=== PATIENT | male | born 1960 | race Caucasian/White ===

== ENCOUNTER 2017-04-20 18:03 | Emergency (ER) | payer OTHER ==
[2017-04-20 18:51] VITALS: RESP 16; TEMP 96.4
[2017-04-20] MEDS ORDERED: Sodium Chloride 0.9% 1,000 ML PRIMARY IV ONE (18:57)
[2017-04-20] MEDS ORDERED: TAMSULOSIN 0.4 MG CAPSULE PO ONE (18:57)
[2017-04-20] MEDS ORDERED: NORMAL SALINE 10 ML SYRINGE FLUSH IVP PRN (18:57)
[2017-04-20 19:07] LABS: BASOPHILS # (AUTO) 0.04 10*3/UL; BASOPHILS % (AUTO) 0.3 % (0-1); EOSINOPHILS # (AUTO) 0.08 10*3/UL; EOSINOPHILS % (AUTO) 0.6 % (0-8); HEMATOCRIT 50.4 % (42.0-52.0); HEMOGLOBIN 17.3 g/dL (14.0-18.0); LYMPHOCYTES # (AUTO) 2.12 10*3/uL; MEAN CORPUSCULAR HEMOGLOBIN 31.5 PG (27-31); MEAN CORPUSCULAR HGB CONC 34.3 g/dL (33-37); MEAN CORPUSCULAR VOLUME 91.8 FL (80-90); MEAN PLATELET VOLUME 10.2 FL (7.4-12.2); MONOCYTES % (AUTO) 4.5 % (5-15); NEUTROPHILS # (AUTO) 10.37 10*3/UL; NEUTROPHILS % (AUTO) 78.3 % (50-80); RED BLOOD COUNT 5.49 10^6/uL (4.70-6.10)
[2017-04-20 19:10] LABS: PLATELET MORPHOLOGY COMMENT NORMAL MORPHOLOGY (NORM); RBC MORPHOLOGY COMMENT NORMAL MORPHOLOGY (NORM); WBC MORPHOLOGY COMMENT NORMAL MORPHOLOGY (NORM)
[2017-04-20 19:11] LABS: BUN/CREATININE RATIO 13.84 (6-20); CALCIUM 9.8 mg/dL (8.7-10.7); SERUM ALBUMIN 4.3 g/dL (3.5-4.8)
[2017-04-20 19:12] LABS: BILIRUBIN,URINE NEGATIVE (NEG); CLARITY,URINE CLEAR (CLEAR); COLOR,URINE YELLOW; GLUCOSE, URINE (UA) NEGATIVE (NEG); NITRATE,URINE NEGATIVE (NEG); OCCULT BLOOD,URINE LARGE (NEG); PH,URINE 6.5 (5.0-8.5); PROTEIN,URINE TRACE mg/dl (NEG); UROBILINOGEN,URINE 0.2 EU/dL (0.2)
[2017-04-20 19:14] LABS: RBC,URINE 20-25 /hpf; URINE SAMPLE TYPE VOIDED SPECIMEN
[2017-04-20 19:15] LABS: SQUAMOUS EPITHELIAL CELL,UR RARE
[2017-04-20] MEDS ORDERED: HYDROmorphone 2 MG/1 ML IVP ONE (20:09)
[2017-04-20] MEDS ORDERED: KETOROLAC 30 MG/1 ML VIAL IVP ONE (20:10)
--- NOTE | 2017-04-20 20:24 | DI ---
CT ABDOMEN SCAN WITH IV CONTRAST, 04/20/2017 6:58 PM : Clinical History: Right flank pain. Previous Exam: 05/21/2016. Scans are performed from the lower lung bases through the liver and kidneys with IV contrast. 80 ml o f Isovue 300 was injected IV. No oral or rectal contrast was ordered. The lung bases are clear. There are surgical clips along the medial margin of which should be the lef t lobe of the liver. This patient may have had a partial hepatectomy. The liver itself is otherwise u nremarkable. The gallbladder is grossly normal. There is no abnormality of the spleen, pancreas, and adrenal glands. Both kidneys are normal in size, shape, position and contour. There is no left hydron ephrosis or hydroureter. The right kidney has a nonobstructing 3-4 mm calculus in upper pole calyx. T here is very mild hydronephrosis and hydroureter on the right side secondary to a distal right ureter al calculus at the ureterovesicular junction. This calculus measures between 5-6 mm in diameter and i s causing a very low-grade partial obstruction. There is no extravasation of urine from the right kid gavin or ureter. There is no left renal or ureteral calculus. There are no abnormal retrocrural or margo aortic nodes. No ascites is present. READIN. There is a very low-grade partial obstruction at the distal right ureterovesicular junction secon chaim to a 5-6 mm ureteral calculus. There is no evidence of extravasation. There is only minimal hydr onephrosis and hydroureter on the right side. There is a second small 3-4 mm nonobstructing right libia al calculus in upper pole calyx. The left kidney and ureter are normal. 2. The remainder of the exam is normal. CT PELVIS SCAN WITH IV CONTRAST, 04/20/2017 6:58 PM: Clinical History: See above. Previous Exam: 05/21/2016. Scans are performed from just superior to the umbilicus to the symphysis pubis with IV contrast. This is the same bolus of contrast used for the CT scans of the abdomen. Scans through the lower abdomen and pelvis show no masses or abnormal fluid collections. There is no adenopathy. The patient is status post right colectomy with an end to end anastomosis. The small breanna l and the remainder of the colon is unremarkable except for 2 hernias in the right side of the anteri or abdominal wall above the umbilicus. Loops of colon have herniated through each of these defects bu t there is no evidence of obstruction. There is a third hernia midway between the umbilicus and the u pper hernias and this lies to the right of midline. Only small bowel loops have herniated through thi s defect and there is no evidence of obstruction. READIN. Status post right hemicolectomy. There are 2 separate hernias to the right of midline in the epig astric region through which only loops of large bowel have herniated without evidence of obstruction. 2. There is a third anterior abdominal wall hernia to the left of midline midway between the umbilic us and the 2 upper hernias on the right side. Only small bowel loops have herniated through this defe ct without evidence of obstruction.
[2017-04-20] MEDS ORDERED: HYDROcodone-APAP 10 MG-325 MG TABLET PO SCH (21:00)
--- NOTE | 2017-04-20 23:31 | PDOC ---
Male Genitourinary Problem HPI - General Chief Complaint: Genitourinary Complaint Stated Complaint: right flank pain Date Seen by Provider: 04/20/17 Time Seen by Provider: 18:30 Source: POSITIVE: Patient Exam Limitations: POSITIVE: No limitations Nurse's Notes Reviewed & Considered: Yes - History of Present Illness Initial Comments: The patient is a 56-year-old male. He states that approximately 4-1/2 hours [employer] he developed an abrupt onset of right flank pain with some associated urinary urgency. He states the pain was quite severe at its onset, but upon presentation to the emergency room it has decreased considerably. No associated fevers or chills. No nausea or vomiting or gross hematuria. Patient has a history of having had colon cancer and has undergone a partial resection of his colon and states he also underwent a partial resection of the liver due to metastatic disease. He thinks he had an associated appendectomy with his previous abdominal surgery. Body Location Affected: REPORTS: Back (Right flank) Timing: REPORTS: Abrupt Duration: 4-6 hours Severity: Moderate Quality: REPORTS: "Pain" Context: DENIES: Drug Use, Lifting, Trauma, Recent Surgery, Other (please comment) Sexual History: REPORTS: Non-Contributory Associated Symptoms: REPORTS: Urgency, Flank Pain (Right) Similar Symptoms Previously: No Recent Care Received: REPORTS: Denies Any Prior Injuries Related to Current Complaint?: No - Patient Home Medications Home Medications: Home Medications HYDROcodone/APAP 10/325 Tab [[place] 10/325 Tab] 1 tab PO Q4H PRN #25 tab Tamsulosin HCl [Flomax] 0.4 mg PO DAILY #15 cap 04/20/17 - Patient Allergies Allergies/Adverse Reactions: Allergies Allergy/AdvReac Type Severity Reaction Status Date / Time No Known Allergies Allergy Verified 04/20/17 18:35 Past Medical History - heen HEENT History: Denies History Cardiovascular History: Denies History Respiratory History: Pneumonia Gastrointestinal History: Other (please comment) Additional Gastrointestinal History: Multiple abdominal surgeries due to colon cancer and liver cancer. Pt had a colon resection and part of liver removed. Genitourinary History: Other (please comment) Additional Genitourinary History: PT STATES HIS URINE HAS BEEN ORANGE IN COLOR FOR MANY YEARS Endocrine History: Denies History Musculoskeletal History: Denies History Prosthesis or Implant: No Neurological History: Denies History Blood Disorders: Denies History Psychiatric History: Denies History History of Sexually Transmitted Diseases: No Cancer History: Colon, Other (please comment) In Past Year Been Physically Harmed or Verbally Threatened: No History of MDRO: No History of Other Communicable Diseases: No Tobacco Use: Current Every Day Smoker Alcohol Use: Rarely Substance Use Type: None Previous Surgical History: Yes Type / Date of Surgery: COLON RESECTION, PART OF LIVER REMOVED Anesthesia Reactions: No Malignant Hyperthermia: No Significant Family History: No pertinent family hx Past Medical History Reviewed: Reviewed - No Changes ROS - Limitations ROS Limitations: No Limitations Constitution: REPORTS: Denies Symptoms Cardiovascular: REPORTS: Denies Cardiac Symptoms Respiratory: REPORTS: Denies Resp Symptoms Neurological: REPORTS: Denies Neuro Symptoms Gastrointestinal: REPORTS: Other (Right flank pain) Endocrine: REPORTS: Denies Symptoms Musculoskeletal: REPORTS: Denies MS Symptoms Genitourinary: REPORTS: Flank Pain (Right), Other (Urinary urgency) Eyes: REPORTS: Denies Symptoms ENT: REPORTS: Denies Symptoms Skin: REPORTS: Denies Skin Symptoms Lympathic: REPORTS: Denies Lympathic Symptoms Immunologic: POSITIVE: Denies Symptoms Psychiatric: POSITIVE: Denies Psych Symptoms Male Genitourinary Exam - General Appearance General Appearance: POSITIVE: Alert, Cooperative, No Evidence of Trauma, Mild Distress - Abdomen Abdomen: Soft: (All Quadrants), Normal Bowel Sounds: (All Quadrants), Denies Tenderness: (All Quadrants), No Splenomegaly: (All Quadrants), No Hepatomegaly: (All Quadrants), No Guarding: (All Quadrants), No Rebound: (All Quadrants), No Palpable Pulse: (All Quadrants), No [place]pabale Mass: (All Quadrants), No Distention: (All Quadrants), No Rigidity: (All Quadrants) - Neck Neck: POSITIVE: Normal Inspection, No Apparent Injury - Respiratory Respiratory: POSITIVE: No Respiratory Distress, Breath Sounds Normal, Chest Non- Tender - Cardiovascular Cardiovascular: POSITIVE: Regular Rate and Rhythm, Heart Sounds Normal, Equal Pulses, Strong Pulses Peripheral Pulses: Radial (R): 2+, Radial (L): 2+ - Back Back: POSITIVE: CVA Tenderness (R) (Mild) - Extremities Extremity: Non-Tender: (All Extremities), Normal ROM: (All Extremities), Normal Inspection: (All Extremities) - Neurological / Psychological Neurological: POSITIVE: Oriented X3, supervisor pastry Normal As Tested, Motor Normal, Sensation Normal, 5, 6 - Skin Skin: POSITIVE: Intact, Normal For Race, Warm, Dry, No Rash Images - Complete Complete: 1 - Area of described pain Male Genitourinary Progress - Results Reviewed by me Xrays/CTs/US Reviewed by me: Yes Discussed with Radiologist: Yes Radiology Findings: 4-5 mm ureteral calculus at the ureterovesical junction with mild hydronephrosis and hydroureter. Lab Results Reviewed: Yes (microscopic hematuria) Lab Results: Laboratory Results 04/20/17 04/20/17 Range/Units 18:45 19:02 WBC 13.25 H (4.8-10.8) 10^3/uL RBC 5.49 (4.70-6.10) 10^6/uL Hgb 17.3 (14.0-18.0) g/dL Hct 50.4 (42.0-52.0) % MCV 91.8 H (80-90) FL MCH 31.5 H (27-31) PG MCHC 34.3 (33-37) g/dL RDW Std Deviation 45.0 (39-50) fL RDW Coeff of Cosmo 13.5 (11.5-14.5) % Plt Count 257 (140-350) 10*3/uL MPV 10.2 (7.4-12.2) FL Immature Gran % (Auto) 0.3 (0-5) % Neut % (Auto) 78.3 (50-80) % Lymph % (Auto) 16.0 (10-50) % Mayes % (Auto) 4.5 L (5-15) % Eos % (Auto) 0.6 (0-8) % Baso % (Auto) 0.3 (0-1) % Immature Gran # (Auto) 0.04 10*3/UL Neut # (Auto) 10.37 10*3/UL Lymph # (Auto) 2.12 10*3/uL Mayes # (Auto) 0.60 (0.3-0.8) 10*3/UL Eos # (Auto) 0.08 10*3/UL Baso # (Auto) 0.04 10*3/UL WBC Morphology Comment Normal morphology (NORM) Plt Morphology Comment Normal morphology (NORM) RBC Morph Comment Normal morphology (NORM) Sodium 139 (135-145) meq/L Potassium 4.2 (3.8-5.2) meq/L Chloride 109 (98-112) meq/L Carbon Dioxide 23 (23-33) meq/L Anion Gap 7 (5-20) BUN 18 (7-22) mg/dL Creatinine 1.3 (0.70-1.50) mg/dL Estimated GFR 57 (>60 ml/min/1.73m(2)) BUN/Creatinine Ratio 13.84 (6-20) Glucose 127 H (78-110) mg/dL Calculated Osmolality 291.0 (267-292) mOsm/kg Calcium 9.8 (8.7-10.7) mg/dL Total Bilirubin 0.8 (0.3-1.2) mg/dL AST 33 (21-57) IU/L ALT 43 (21-72) IU/L Alkaline Phosphatase 99 (38-126) IU/L Total Protein 7.5 (6.1-8.0) g/dL Albumin 4.3 (3.5-4.8) g/dL Globulin 3.3 (2.50-4.10) g/dL Albumin/Globulin Ratio 1.30 (1.3-2.0) mg/g Ur Collection Type Voided specimen Urine Color Yellow Urine Clarity Clear (CLEAR) Urine pH 6.5 (5.0-8.5) Ur Specific [place] 1.025 (1.005-1.030) Urine Protein Trace (NEG) mg/dl Urine Glucose (UA) Negative (NEG) mg/dL Urine Ketones 40 (NEG) Urine Occult Blood Large H (NEG) Urine Nitrate Negative (NEG) Urine Bilirubin Negative (NEG) Urine Urobilinogen 0.2 (0.2) EU/dL Ur Leukocyte Esterase Negative (NEG) Urine RBC 20-25 (NONE) /hpf Urine WBC None (NONE) Ur Squamous Epith Cells Rare (NONE) Ur Renal Epithelial Cell None (NONE) Urine Crystals None Urine Bacteria None (NONE) Urine Casts None (NONE) Urine Mucus None (NONE) Urine Trichomonas None (NONE) Urine Yeast None (NONE) Ur Culture Indicated? Culture not set - Patient's Progress Pain Medication Addressed: POSITIVE: Yes (Patient given 2 mg of Dilaudid IV and 30 mg of Toradol IV with good relief of pain. Discharged on hydrocodone/APAP, one every 4 hours as necessary for pain) School/Work Release Addressed: POSITIVE: Not Applicable Re-Examine Time:: 20:40 Re-Examine Comment: Asymptomatic on discharge Status: POSITIVE: Improved, Re-Examined - Consult Counseled: POSITIVE: Patient, RE: Lab Results, RE: Radiology Results, RE: DX, RE : Need for F/U Patient Care Time - Estimated PCT Patient Care Time (In Minutes): 45 Vital Signs - Recent Vital Signs Vital Signs: Vital Signs (Last 8 hours) Temp Pulse Resp BP Pulse Ox 04/20/17 18:05 96.4 F L 66 16 125/73 98 - VS Reviewed Vital Signs Reviewed: Yes Discharge Clinical Impression: Renal colic, Ureterolithiasis Discharge Disposition: Discharged to Home Condition: Stable Prescriptions / Orders: Tamsulosin HCl [Flomax] 0.4 mg PO DAILY #15 cap HYDROcodone/APAP 10/325 Tab [[place] 10/325 Tab] 1 tab PO Q4H PRN #25 tab PRN Reason: Pain Patient Instructions Given at Discharge: Ureteral Stones (ED) Additional Instructions: You are passing a kidney stone (ureteral stone) on the right. Most of these stones pass, but you might have some pain during this process. Please strain your urine every time you urinate and check for the passage of a stone. Increase fluids. Flomax, one daily. Hydrocodone/APAP, one every 4 hours as necessary for pain. Follow-up with urology in [place] if you have not passed a stone in 7-10 days. Return any time if you develop fevers, severe pain, persistent vomiting, or if condition worsens in any way. Follow Up With: RANDY GONZALEZ [Primary Care Provider] - (Instructions as above. Follow-up with urology in [place]. Return here anytime if condition worsens in any way.)
== END 2017-04-20 21:11 | disposition home or self-care (01) ==
LOC: ER 18:03
DX: N23 Unspecified renal colic (principal); N20.1 Calculus of ureter; M54.89 Other dorsalgia; R39.15 Urgency of urination; R10.11 Right upper quadrant pain
CPT/HCPCS: 74177; 80053; 81001; 81003; 85025; 96361; 96374; 96375; 99283 ×2; J1885; J1170; J7030

== ENCOUNTER → 2017-04-26 | Outpatient (CLI) | payer OTHER ==
[2017-04-26 15:11] LABS: BLOOD UREA NITROGEN 14 mg/dL (7-22); BUN/CREATININE RATIO 15.55 (6-20); CHOL/HDL RATIO 5.51 RATIO (0-4.0); EST GLOMERULAR FILTRATION > 60 (>60 ml/min/1.73m(2)); HDL CHOLESTEROL 41 mg/dL (40-150); SERUM ALBUMIN 4.3 g/dL (3.5-4.8); SERUM CHOLESTEROL 226 mg/dL (120-200)
[2017-04-26 15:13] LABS: BASOPHILS # (AUTO) 0.03 10*3/UL; BASOPHILS % (AUTO) 0.4 % (0-1); EOSINOPHILS # (AUTO) 0.07 10*3/UL; EOSINOPHILS % (AUTO) 0.9 % (0-8); HEMOGLOBIN 17.4 g/dL (14.0-18.0); MEAN CORPUSCULAR HGB CONC 34.8 g/dL (33-37); MEAN CORPUSCULAR VOLUME 92.1 FL (80-90); MEAN PLATELET VOLUME 10.1 FL (7.4-12.2); MONOCYTES # (AUTO) 0.52 10*3/UL (0.3-0.8); MONOCYTES % (AUTO) 6.6 % (5-15); NEUTROPHILS # (AUTO) 3.62 10*3/UL; NEUTROPHILS % (AUTO) 45.9 % (50-80); RED BLOOD COUNT 5.43 10^6/uL (4.70-6.10)
[2017-04-26 15:14] LABS: PLATELET MORPHOLOGY COMMENT NORMAL MORPHOLOGY (NORM); RBC MORPHOLOGY COMMENT NORMAL MORPHOLOGY (NORM); WBC MORPHOLOGY COMMENT NORMAL MORPHOLOGY (NORM)
[2017-04-26 15:15] LABS: BILIRUBIN,URINE NEGATIVE (NEG); CLARITY,URINE CLEAR (CLEAR); COLOR,URINE YELLOW; GLUCOSE, URINE (UA) NEGATIVE (NEG); NITRATE,URINE NEGATIVE (NEG); OCCULT BLOOD,URINE SMALL (NEG); PH,URINE 5.5 (5.0-8.5); PROTEIN,URINE NEGATIVE (NEG); UROBILINOGEN,URINE 0.2 mg/dL (0.2)
[2017-04-26 15:21] LABS: RBC,URINE 25-50 /hpf; URINE SAMPLE TYPE VOIDED SPECIMEN; WBC,URINE 0-2
== END ==
LOC: MOB LAB 12:54
PROVIDERS: ATTEND Internal Medicine
DX: N20.0 Calculus of kidney (principal); E66.9 Obesity, unspecified; R94.5 Abnormal results of liver function studies; C18.9 Malignant neoplasm of colon, unspecified; R31.9 Hematuria, unspecified; Z90.49 Acquired absence of other specified parts of digestive tract
CPT/HCPCS: 36415; 80053; 80061; 81001; 82378; 82607; 84443; 85025